=== PATIENT | male | born 1965 | race Caucasian/White ===

== ENCOUNTER → 2018-01-22 | Outpatient (CLI) | payer BC ==
[~2018-01-22] MED LIST: ASCO500T PO; ASPI-630 PO; BUPR300T3 PO; CALC500T30 PO; DAPA5TAB PO; EXEN10PE3 SQ; GLIP10TA13 PO; LORA10TA3 PO; MAGN500C10 PO; MELA2.5T PO; METF10002 PO; MULT-246 PO; OLME1TAB23 PO; OMEG1CAP16 PO; TEST75GE TD; VITA400C6 PO
--- NOTE | 2018-01-22 13:23 | RAD ---
Ultrasound of the scrotum HISTORY: Left swelling and pain. COMPARISON: None Right testicle * Size: 3.8 cm longitudinal * Blood supply: Positive blood flow * Appearance: Homogeneous echotexture without focal lesion Right epididymis: Normal size and appearance Left testicle * Size: 4.0 cm longitudinal * Blood supply: Positive blood flow * Appearance: Homogeneous echotexture without focal lesion Left epididymis: Small epididymal cyst, measures 5 mm. Very small left-sided hydrocele. IMPRESSION: No acute abnormality of the testicles or epididymis. Electronically signed by: Clyde Pacheco MD (01/22/2018 1:21 PM) [id number]
== END | disposition home or self-care (01) ==
LOC: US 12:21
PROVIDERS: ATTEND Family Medicine
DX: N43.2 Other hydrocele (principal); N50.3 Cyst of epididymis
CPT/HCPCS: 76870